=== PATIENT | female | born 1950 | race Caucasian/White ===

== ENCOUNTER 2017-05-14 10:33 | Emergency (ER) | payer MEDICARE, BC ==
[~2017-05-14] VITALS: Ht 167.6 cm; Wt 66.5 kg
[~2017-05-14 10:33] MED LIST: CEPH-443 PO; POLY30OI TOP
[2017-05-14 10:34] VITALS: Ht 167.6 cm; Wt 66.5 kg
[2017-05-14] MEDS ORDERED: HYDROmorphONE 1 MG/ML SYG IV STA (11:27)
[2017-05-14] MEDS ORDERED: ONDANSETRON 4 MG INJ IV STA (11:27)
[2017-05-14] MEDS ORDERED: SOD CHLORIDE 0.9% 1,000 ML IV STA (11:27)
[2017-05-14 12:00] LABS: BASOPHILS % 0.5 % (0.0-2.0); EOSINOPHILS % 0.7 % (0.0-7.0); HEMATOCRIT 42.4 % (37.0-47.0); HEMOGLOBIN 14.4 g/dl (12.0-16.0); LYMPHOCYTES # 0.9 10^3/ul (0.8-2.9); LYMPHOCYTES % 14.7 % (15.0-51.0); MEAN CORPUSCULAR HEMOGLOBIN 31.8 pg (29.0-33.0); MEAN CORPUSCULAR VOLUME 93.6 fl (82.0-101.0); MONOCYTE # 0.4 10^3/ul (0.3-0.9); MONOCYTES % 6.1 % (0.0-11.0); NEUTROPHIL # 4.6 10^3/ul (1.6-7.5); NEUTROPHILS % 77.8 % (39.0-77.0); PLATELET COUNT 127 10^3/UL (140-415); RED BLOOD COUNT 4.53 10^6/ul (4.20-5.40); RED CELL DISTRIBUTION WIDTH 12.7 % (11.5-14.5); WHITE BLOOD COUNT 5.9 10^3/ul (4.8-10.8)
[2017-05-14] MEDS ORDERED: ALEN70TA30 PO (12:15)
[2017-05-14 12:17] LABS: INR 0.9; PROTIME 12.2 Sec (11.9-14.9)
[2017-05-14 12:18] LABS: PARTIAL THROMBOPLASTIN TIME 23.9 Sec (25.0-35.0)
[2017-05-14 12:21] LABS: ALBUMIN 4.4 g/dl (3.3-4.9); ALBUMIN/GLOBULIN RATIO 1.51; BILIRUBIN,INDIRECT 0.7 mg/dl (0-1.1); BILIRUBIN,TOTAL 0.7 mg/dl (0.2-1.3); CALCIUM 9.5 mg/dl (8.4-10.2); CREATININE 0.88 mg/dl (0.44-1.00); POTASSIUM 4.2 mmol/L (3.5-5.1); TOTAL PROTEIN 7.3 g/dl (6.1-8.1)
[2017-05-14 12:50] LABS: ADD UMIC YES; UR ASCORBIC ACID NEGATIVE (NEGATIVE); UR BILIRUBIN (Dip) NEGATIVE (NEGATIVE); UR BLOOD (Dip) 3+ mg/dL (NEGATIVE); UR CLARITY CLEAR (CLEAR); UR COLOR YELLOW (YELLOW); UR GLUCOSE (Dip) NEGATIVE (NEGATIVE); UR KETONES (Dip) NEGATIVE (NEGATIVE); UR LEUKOCYTE ESTERASE (Dip) NEGATIVE Leu/ul (NEGATIVE); UR MUCUS FEW /HPF (NONE SEEN); UR NITRITE (Dip) NEGATIVE (NEGATIVE); UR RBC 129 /HPF (0-5); UR SPECIFIC GRAVITY (Dip) 1.008 (1.003-1.030); UR TOTAL PROTEIN (Dip) NEGATIVE (NEGATIVE); UR UROBILINOGEN (Dip) NEGATIVE (NEGATIVE)
--- NOTE | 2017-05-14 13:05 | ERD ---
ER Documentation Chief Complaint Chief Complaint lt lower abd pain x 1 hr , denies n/v/d HPI 66 year old female presenting with acute onset LLQ abdominal pain for 1 hour. Pain is 10/10, constant, sharp and stabbing, radiating to left flank. She denies associated dysuria, hematuria, constipation, hematochezia, nausea, vomiting or fevers. No alleviating or exacerbating factors. She endorses smoking. ROS All systems reviewed and are negative except as per history of present illness. Medications Home Meds Reported Medications Alendronate Sodium* (Fosamax*) 70 Mg Tablet, 70 MG PO Q7D, #4 TAB 05/14/17 Discontinued Scripts Bacitracin-Polymyxin* (Bacitracin-Polymyxin* Oint) 30 Gm Oint..gm., 1 APPLIC TOP BID, #60 TUB 0 Refills Prov:NANETTE GARCIA PA-C 06/24/15 Cephalexin* (Keflex*) 500 Mg Capsule, 500 MG PO BID, #14 CAP 0 Refills Prov:NANETTE GARCIA PA-C 06/24/15 Allergies Allergies: Coded Allergies: No Known Allergy (Unverified , 05/14/17) PMhx/Soc History of Surgery: No Anesthesia Reaction: No Hx Neurological Disorder: No Hx Respiratory Disorders: No Hx Cardiac Disorders: Yes (HIGH B/P) Hx Psychiatric Problems: No Hx Miscellaneous Medical Probl: No Hx Alcohol Use: No Hx Substance Use: No Hx Tobacco Use: Yes (1 PACK/DAY) Smoking Status: Current every day smoker FmHx Family History: No diabetes Physical Exam Vitals Vital Signs Date Time Temp Pulse Resp B/P Pulse Ox O2 Delivery O2 Flow Rate FiO2 05/14/17 13:06 97.9 72 16 113/65 100 Room Air 05/14/17 10:34 97.7 90 18 202/87 100 Physical Exam Const: Nontoxic, in significant distress, writhing around in bed Head: Atraumatic Eyes: Normal Conjunctiva ENT: Normal External Ears, Nose and Mouth. Neck: Full range of motion..~ No meningismus. Resp: Clear to auscultation bilaterally Cardio: Regular rate and rhythm, no murmurs. 2+ distal pulses Abd: Soft, mild left mid and lower abdominal tenderness without rebound or guarding, non distended. Normal bowel sounds Skin: No petechiae or rashes Back: No midline or flank tenderness Ext: No cyanosis, or edema Neur: Awake and alert Psych: Normal Mood and Affect Result Diagram: 05/14/17 1140 05/14/17 1140 Results 24 hrs Laboratory Tests Test 05/14/17 11:40 05/14/17 12:20 White Blood Count 5.910^3/ul Red Blood Count 4.5310^6/ul Hemoglobin 14.4g/dl Hematocrit 42.4% Mean Corpuscular Volume 93.6fl Mean Corpuscular Hemoglobin 31.8pg Mean Corpuscular Hemoglobin Concent 34.0g/dl Red Cell Distribution Width 12.7% Platelet Count 49476^3/UL Mean Platelet Volume 11.0fl Neutrophils % 77.8% Lymphocytes % 14.7% Monocytes % 6.1% Eosinophils % 0.7% Basophils % 0.5% Nucleated Red Blood Cells % 0.0/100WBC Neutrophils # 4.610^3/ul Lymphocytes # 0.910^3/ul Monocytes # 0.410^3/ul Eosinophils # 0.010^3/ul Basophils # 0.010^3/ul Nucleated Red Blood Cells # 0.010^3/ul Prothrombin Time 12.2Sec Prothrombin Time Ratio 1.0 INR International Normalized Ratio 0.90 Activated Partial Thromboplast Time 23.9Sec Sodium Level 141mmol/L Potassium Level 4.2mmol/L Chloride Level 106mmol/L Carbon Dioxide Level 21mmol/L Anion Gap 18 Blood Urea Nitrogen 14mg/dl Creatinine 0.88mg/dl Glucose Level 152mg/dl Calcium Level 9.5mg/dl Total Bilirubin 0.7mg/dl Direct Bilirubin 0.00mg/dl Indirect Bilirubin 0.7mg/dl Aspartate Amino Transf (AST/SGOT) 24IU/L Alanine Aminotransferase (ALT/SGPT) 21IU/L Alkaline Phosphatase 74IU/L Total Protein 7.3g/dl Albumin 4.4g/dl Globulin 2.90g/dl Albumin/Globulin Ratio 1.51 Urine Color YELLOW Urine Clarity CLEAR Urine pH 8.0 Urine Specific [place] 1.008 Urine Ketones NEGATIVEmg/dL Urine Nitrite NEGATIVEmg/dL Urine Bilirubin NEGATIVEmg/dL Urine Urobilinogen NEGATIVEmg/dL Urine Leukocyte Esterase NEGATIVELeu/ul Urine Microscopic RBC 129/HPF Urine Microscopic WBC 5/HPF Urine Mucus FEW/HPF Urine Hemoglobin 3+mg/dL Urine Glucose NEGATIVEmg/dL Urine Total Protein NEGATIVEmg/dl Current Medications Medications (Trade) Dose Ordered Sig/Christy Route PRN Reason Start Time Stop Time Status Last Admin Dose Admin Sodium Chloride (NS) 1,000 ml @ 1,000 mls/hr Q1H STAT IV 05/14/17 11:27 05/14/17 12:26 DC 05/14/17 11:45 Hydromorphone HCl (Dilaudid) 1 mg ONCE STAT IV 05/14/17 11:27 05/14/17 11:29 DC Ondansetron HCl (Zofran Inj) 4 mg ONCE STAT IV 05/14/17 11:27 05/14/17 11:29 DC Procedures/MDM Labs: CBC: mild thrombocytopenia BMP: unremarkable UA: hematuria, no infection MDM Patient presenting with acute left lower abdominal pain. Vitals were notable for significantly elevated blood pressure. I considered bowel perforation, aortic dissection, bowel ischemia and renal colic among other etiologies. Initially I had ordered a CTA of the abdomen and pain medications. However upon reevaluation, patient states her pain resolved completely soon after I left her bedside without pain medications. She feels much better and would like to go home without imaging. I think that this is reasonable. I suspect she may have passed a kidney stone given the presence of microscopic hematuria. This is less likely a vascular emergency. Patient feels comfortable going home with return precautions. Departure Diagnosis: Primary Impression: Left lower quadrant abdominal pain of unknown etiology Condition: Stable Patient Instructions: Kidney Stone, Passed ROC ESCUDERO MD May 14, 2017 13:05
[2017-05-14 13:06] VITALS: BP 113/65; PULSE 72; RESP 16; TEMP 97.9
== END 2017-05-14 13:07 | disposition home or self-care (01) ==
LOC: E/R 10:33
DX: R10.32 Left lower quadrant pain (principal); F17.210 Nicotine dependence, cigarettes, uncomplicated
CPT/HCPCS: 36415; 80053; 81001; 85025; 85610; 85730; 87086; 99284; J7030; J1170; J2405

== ENCOUNTER 2017-11-27 07:24 | Emergency (ER) | END 2017-11-27 09:10 | disposition home or self-care (01) ==

== ENCOUNTER 2018-10-14 03:20 | Emergency (ER) | payer MEDICARE, BC ==
[~2018-10-14] VITALS: Ht 170.2 cm; Wt 64.3 kg
[2018-10-14 03:20] VITALS: Ht 170.2 cm; Wt 64.3 kg
[~2018-10-14 03:20] MED LIST changes: +ALEN70TA5 PO; -CEPH-443 PO; +HYDR-4011 PO; -POLY30OI TOP; +TAMS-14 PO
[2018-10-14] MEDS ORDERED: IPRATROPIUM (NEB) 0.5 MG/2.5 ML AMP INH STA ×2 (03:43→05:01)
[2018-10-14] MEDS ORDERED: ALBUTEROL 0.5% (NEB) 2.5 MG/0.5 ML AMP INH STA ×2 (03:43→05:01)
[2018-10-14] MEDS ORDERED: predniSONE 20 MG TAB PO STA (03:43)
--- NOTE | 2018-10-14 03:54 | ERD ---
ER Documentation Chief Complaint Chief Complaint Pt reports chest congestion and recent dx sinus infection HPI This is a 68-year-old female with a history of high blood pressure and history of smoking who presents ED with complaints of cough x1 week. Patient admits to sputum production and wheezing over the past 3 days. Admits to some shortness of breath with prolonged coughing spells. Patient recently was diagnosed with sinus infection 10 days ago and was started on doxycycline. Patient denies any sinus pain, sinus pressure, fever, chills runny nose, ear pain, sore throat, nausea, vomiting, diarrhea, constipation, chest pain and all other symptoms ROS All systems reviewed and are negative except as per history of present illness. Medications Home Meds Active Scripts Prednisone* (Prednisone*) 20 Mg Tab, 40 MG PO DAILY for 4 Days, TAB Prov:CONNIE BLACKWELL PA-C 10/14/18 Dextromethorphan Hb-Promethazine Hcl* (Promethazine DM* Syrup) 473 Ml Syrup, 5 ML PO Q6 PRN for COUGH for 3 Days, ML Prov:CONNIE BLACKWELL PA-C 10/14/18 Benzonatate* (Tessalon Perle*) 100 Mg Capsule, 100 MG PO Q8H PRN for COUGH for 5 Days, CAP Prov:CONNIE BLACKWELL PA-C 10/14/18 Albuterol Sulfate* (Proair HFA*) 8.5 Gm Hfa.aer.ad, 2 PUFF INH Q4, #1 INHALER Prov:CONNIE BLACKWELL PA-C 10/14/18 Tamsulosin Hcl* (Flomax*) 0.4 Mg Cap.er.24h, 0.4 MG PO QPM, #30 CAP Prov:TANESHA STEVENS PA-C 11/27/17 Hydrocodone/Acetaminophen ([place] 5-325 Tablet) 1 Each Tablet, 1 TAB PO Q6H PRN for PAIN, #7 TAB Prov:TANESHA STEVENS PA-C 11/27/17 Reported Medications Alendronate Sodium* (Fosamax*) 70 Mg Tablet, 70 MG PO Q7D, #4 TAB 05/14/17 Allergies Allergies: Coded Allergies: No Known Allergy (Unverified , 11/27/17) PMhx/Soc History of Surgery: No Anesthesia Reaction: No Hx Neurological Disorder: No Hx Respiratory Disorders: No Hx Cardiac Disorders: Yes (HIGH B/P) Hx Psychiatric Problems: No Hx Miscellaneous Medical Probl: No Hx Alcohol Use: No Hx Substance Use: No Hx Tobacco Use: Yes (1 PACK/DAY) Smoking Status: Current every day smoker FmHx Family History: No diabetes Physical Exam Vitals Vital Signs Date Temp Pulse Resp B/P (MAP) Pulse Ox O2 O2 Flow FiO2 Time Delivery Rate 10/14/18 77 20 95 21 05:13 10/14/18 93 21 94 21 04:04 10/14/18 97.4 105 16 167/84 97 03:20 (111) Physical Exam Physical Exam Vitals signs: Reviewed by me. General: Well developed, well nourished, in no acute distress. Patient is awake and alert. Head: Normocephalic, atraumatic. Eyes: Normal conjunctiva, Pupils PERRLA, EOM intact grossly ENT: Pharynx is clear, Moist mucous membranes, external ears, nose and mouth normal Neck: Supple, no masses, lymphadenopathy or JVD Respiratory: Expiratory wheezing heard throughout lung roland, no rhonchi, rales, no respiratory distress, no labored breathing, and Cardiovascular: RRR, no murmurs, rubs, or gallops Back: No midline tenderness. Neurologic: Alert and oriented, moving all extremities, normal speech, no focal weakness, no cerebellar signs. Normal mentation Skin: warm and dry, No rash Psych: Normal mood Results 24 hrs Current Medications Medications Dose Sig/Christy Start Time Status Last (Trade) Ordered Route PRN Stop Time Admin Dose Reason Admin Albuterol 5 mg ONCE STAT 10/14/18 DC 10/14/18 (Proventil INH 03:43 04:00 0.5% (Neb)) 10/14/18 03:46 Ipratropium 1 mg ONCE STAT 10/14/18 DC 10/14/18 [place] IN[facility] 03:43 04:00 (Atrovent 10/14/18 03:46 0.02% (Neb)) Prednisone 60 mg ONCE STAT 10/14/18 DC 10/14/18 (Prednisone) PO 03:43 04:16 10/14/18 03:46 Albuterol 10 mg ONCE STAT 10/14/18 DC 10/14/18 (Proventil INH 05:01 05:08 0.5% (Neb)) 10/14/18 05:02 Ipratropium 2 mg ONCE STAT 10/14/18 DC 10/14/18 [place] [facility] 05:01 05:09 (Atrovent 10/14/18 05:02 0.02% (Neb)) Procedures/MDM EKG, MONITORS, & DIAGNOSTIC IMAGING: [place] [address] Radiology Main Line: [phone] DIAGNOSTIC IMAGING REPORT Patient: VIVEK PORTILLO : 1950 Age: 68 Sex: F MR #: [id number] DOS: 10/14/18 0343 Ordering MD: CONNIE BLACKWELL PA-C Location: [facility] Room/Bed: PROCEDURE: XR Chest. CLINICAL INDICATION: Asthma exacerbation TECHNIQUE: AP Portable chest. COMPARISON: No pertinent prior examinations were submitted for comparison. FINDINGS: The cardiomediastinal silhouette is normal.The aortic arch is calcified. The lungs are hyperinflated. No focal consolidation, pleural effusion or pneumothorax is seen. There is mild scoliosis and degenerative changes in the spine. IMPRESSION: Hyperinflation. No radiographic evidence of acute cardiopulmonary disease. [facility] Physician Jn Date Time Electronically viewed and signed by Physician Jn on 10/14/2018 05:21 CS/ CC: CONNIE BLACKWELL PA-C [phone] ER COURSE: The patient was given breathing treatment and po prednisone The medication was well tolerated and the patient reports improvement in symptoms. The patient was stable throughout ED course. I kept the patient and/or family informed of laboratory and diagnostic imaging results throughout the emergency room course. The patient was promptly evaluated and a treatment plan was devised based on H&P and other data. This plan was discussed with the patient who agreed and had no further questions or concerns prior to discharge. MEDICAL DECISION MAKING: This is a 68-year-old female with a history of hypertension and smoking who presents ED with cough x1 week. Symptoms are most likely consistent with acute bronchitis, likely caused from a viral infection. Patient was given 2 continuous breathing treatment in the emergency department and reports feeling better. Lung sounds have improved after breathing treatment. Low suspicion for pneumonia, as lung sounds are clear at this time. xray shows no evidence of pneumonia. Oxygen saturation is normal and patient does not have any respi ratory distress. further Advanced imaging is not indicated at this time. Low suspicion for other cardiopulmonary emergency such as pulmonary embolism, pneumothorax, tension pneumothorax, pleural effusion, pneumothorax, CHF, aortic aneurysm or other cardiopulmonary emergencies. No evidence of sepsis. Patient's vitals are stable he can be managed with close outpatient follow-up. Advised patient to follow-up with primary care in the next 48 hours. Return to ED with any worsening symptoms DISPOSITION PLAN: We discussed follow up with the patient's primary care doctor within 24 to 48 hours. Patient counseled regarding my diagnostic impression and care plan. Prior to discharge all questions answered. Pt agrees with treatment plan and understands strict return precautions. Precautionary instructions provided including instructions to return to the ER if not improving or for any worsening or changing symptoms or concerns. SPECIALIST FOLLOW UP RECOMMENDED: None Patient has been advised to follow up with primary care in 1-2 days. Disclaimer: Inadvertent spelling and grammatical errors are likely due to EHR/dictation software use and do not reflect on the overall quality of patient care. Also, please note that the electronic time recorded on this note does not necessarily reflect the actual time of the patient encounter. Smoking Cessation Therapy: Pt. was lectured for greater than 3 minutes on the health risks of continued smoking and the benefits of cessation. Departure Diagnosis: Primary Impression: Acute bronchitis Bronchitis organism: unspecified organism Qualified Codes: J20.9 - Acute bronchitis, unspecified Condition: Stable Patient Instructions: Acute Bronchitis, Getting Support for Quitting Smoking Referrals: COMM[facility] Additional Instructions: Patient advised to return to the ED immediately for new or worsening symptoms. Patient advised to follow up with primary care provider in the next 24-48 hours. Patient verbalized understanding and agrees with treatment plan and course of action. If patient has no primary care they may follow up with one of the community clinics listed on the following page or one of the options listed below [address] [address] or [facility] [address] [place] [address] or [facility] [address] [place] [address] CONNIE BLACKWELL PA-C October 14, 2018 03:54
[2018-10-14] MEDS ORDERED: D-ME473S2 PO (05:29)
[2018-10-14] MEDS ORDERED: PRED20TA PO (05:29)
[2018-10-14] MEDS ORDERED: BENZ-6 PO (05:29)
[2018-10-14] MEDS ORDERED: ALBU8.5H8 INH (05:29)
[2018-10-14 06:34] VITALS: BP 135/71; PULSE 109; RESP 19
== END 2018-10-14 06:35 | disposition home or self-care (01) ==
LOC: FTE 03:20
DX: J20.9 Acute bronchitis, unspecified (principal); F17.210 Nicotine dependence, cigarettes, uncomplicated
CPT/HCPCS: 71045; 94644; 94645; 99285; J7512